=== PATIENT | male | born 1950 | race Caucasian/White ===

== ENCOUNTER → 2024-02-23 | Outpatient (CLI) | payer OTHER, MEDICARE | LOC: M PLARAD 12:17 | PROVIDERS: ATTEND Internal Medicine | DX: R91.1 Solitary pulmonary nodule (principal) | CPT/HCPCS: 78815; A9552 ==

== ENCOUNTER → 2024-05-13 | Outpatient (CLI) | payer OTHER, MEDICARE ==
[~2024-05-13] MED LIST: ATOR40TA75 PO; CHOL12508 PO; ECOT81TA5 PO; FLOM0.4C39 PO; FLON1SPR NARES; GABA-284 PO; METH-1165 PO; PULM0.25 NEB; SPIR1CAP INH; THEO400T4 PO; ZOLO100T PO
== END ==
LOC: M ONCR 10:02
PROVIDERS: ATTEND General Practice
DX: C32.8 Malignant neoplasm of overlapping sites of larynx (principal); F17.210 Nicotine dependence, cigarettes, uncomplicated; Z66 Do not resuscitate; Z85.118 Personal history of other malignant neoplasm of bronchus and lung; Z80.1 Family history of malignant neoplasm of trachea, bronchus and lung; Z88.1 Allergy status to other antibiotic agents; Z88.5 Allergy status to narcotic agent; Z88.8 Allergy status to other drugs, medicaments and biological substances; Z79.51 Long term (current) use of inhaled steroids; Z79.82 Long term (current) use of aspirin; Z79.899 Other long term (current) drug therapy; Z90.5 Acquired absence of kidney; Z99.81 Dependence on supplemental oxygen

== ENCOUNTER 2024-05-25 08:03 | Outpatient (RCR) | payer OTHER, MEDICARE | END 2024-06-12 | LOC: M ONCR 08:03 | PROVIDERS: ATTEND General Practice | DX: Z51.0 Encounter for antineoplastic radiation therapy (principal); C32.8 Malignant neoplasm of overlapping sites of larynx ==

== ENCOUNTER → 2024-05-26 | Outpatient (CLI) | payer OTHER, MEDICARE ==
[2024-05-26 16:25] LABS: BASO % 0.3 % (0.0-1.0); EOS # 0.1 10^3/uL (0.0-0.5); EOS % 0.8 % (0.0-3.0); HEMOGLOBIN 11.5 g/dl (13.5-17.5); LYMPH # 0.7 10^3/uL (1.5-5.0); LYMPH % 7.7 % (24.0-44.0); MEAN CORPUSCULAR HEMOGLOBIN 27.9 pg (27.0-33.0); MEAN CORPUSCULAR HGB CONC 31.1 g/dl (32.0-36.5); MEAN CORPUSCULAR VOLUME 89.8 fl (80.0-96.0); MONO # 0.7 10^3/uL (0.0-0.8); MONO % 7.6 % (2.0-8.0); NEUTROPHILS # 7.6 10^3/uL (1.5-8.5); NEUTROPHILS % 83.2 % (36.0-66.0); PLATELET COUNT, AUTOMATED 316 10^3/uL (150-450); RED BLOOD COUNT 4.12 10^6/uL (4.30-6.10); WHITE BLOOD COUNT 9.1 10^3/uL (4.0-10.0)
[2024-05-26 16:57] LABS: ALBUMIN 2.5 G/DL (3.2-5.2); ALKALINE PHOSPHATASE 82 U/L (46-116); ALT/SGPT 20 U/L (7.0-40); AST/SGOT 19 U/L (<34); BILIRUBIN,TOTAL 0.3 MG/DL (0.3-1.2); BLOOD UREA NITROGEN 19 MG/DL (9-23); CALCIUM LEVEL 9.2 MG/DL (8.3-10.6); CARBON DIOXIDE LEVEL 33 MMOL/L (20-31); CHLORIDE LEVEL 103 MMOL/L (98-107); CREATININE FOR GFR 0.48 MG/DL (0.70-1.30); GLOMERULAR FILTRATION RATE > 60.0 (>42); GLUCOSE, FASTING 144 MG/DL (74-106); MAGNESIUM LEVEL 1.9 MG/DL (1.8-2.4); POTASSIUM SERUM 4.2 MMOL/L (3.5-5.1); SODIUM LEVEL 137 MMOL/L (136-145); TOTAL PROTEIN 6.8 G/DL (5.7-8.2)
== END ==
LOC: M LAB 15:40
PROVIDERS: ATTEND Specialist
DX: C32.9 Malignant neoplasm of larynx, unspecified (principal)

== ENCOUNTER → 2024-05-31 | Outpatient (CLI) | payer OTHER, MEDICARE | LOC: M PLARAD 12:06 | PROVIDERS: ATTEND Student in an Organized Health Care Education/Training Program | DX: C32.8 Malignant neoplasm of overlapping sites of larynx (principal) | CPT/HCPCS: 78815; A9552 ==

== ENCOUNTER 2024-06-21 11:03 | Outpatient (RCR) | payer MEDICARE, OTHER | END 2024-07-12 | LOC: M ONCR 11:03 | PROVIDERS: ATTEND General Practice | DX: Z51.0 Encounter for antineoplastic radiation therapy (principal); C32.8 Malignant neoplasm of overlapping sites of larynx ==

== ENCOUNTER 2024-06-29 08:15 | Outpatient (RCR) | payer MEDICARE, OTHER | END 2024-07-12 | LOC: M ONCR 08:15 | PROVIDERS: ATTEND General Practice | DX: Z51.0 Encounter for antineoplastic radiation therapy (principal); C32.8 Malignant neoplasm of overlapping sites of larynx ==

== ENCOUNTER 2024-07-13 09:18 | Outpatient (RCR) | payer OTHER ==
[2024-07-20] MEDS ORDERED: OMEP40CA5 (13:18)
[2024-07-20] MEDS ORDERED: MIRT-10 (13:18)
== END 2024-08-12 ==
LOC: M ONCR 09:18
PROVIDERS: ATTEND General Practice
DX: Z51.0 Encounter for antineoplastic radiation therapy (principal); C32.8 Malignant neoplasm of overlapping sites of larynx

== ENCOUNTER 2024-08-03 08:00 | Outpatient (RCR) | payer MEDICARE, OTHER ==
[~2024-08-03 08:00] MED LIST changes: +MIRT-10; +OMEP40CA5
== END 2024-08-12 ==
LOC: M ONCR 08:00
PROVIDERS: ATTEND General Practice
DX: Z51.0 Encounter for antineoplastic radiation therapy (principal); C32.8 Malignant neoplasm of overlapping sites of larynx

== ENCOUNTER 2024-08-27 11:02 | Outpatient (RCR) | payer OTHER | END 2024-09-11 | LOC: M ONCR 11:02 | PROVIDERS: ATTEND General Practice | DX: Z51.0 Encounter for antineoplastic radiation therapy (principal); C32.8 Malignant neoplasm of overlapping sites of larynx ==

== ENCOUNTER 2024-09-03 07:54 | Outpatient (RCR) | payer MEDICARE, OTHER | END 2024-09-11 | LOC: M ONCR 07:54 | PROVIDERS: ATTEND General Practice | DX: Z51.0 Encounter for antineoplastic radiation therapy (principal); C32.8 Malignant neoplasm of overlapping sites of larynx ==

== ENCOUNTER → 2024-11-12 | Outpatient (CLI) | payer OTHER ==
[~2024-11-12] MED LIST changes: +MEGE400O12 PO; +MORP1SOL5 PO
[2024-11-12 12:45] LABS: BASO % 0.4 % (0.0-1.0); EOS # 0.1 10^3/uL (0.0-0.5); EOS % 1.9 % (0.0-3.0); HEMATOCRIT 41.2 % (42.0-52.0); HEMOGLOBIN 13.3 g/dl (13.5-17.5); LYMPH # 0.9 10^3/uL (1.5-5.0); LYMPH % 11.4 % (24.0-44.0); MEAN CORPUSCULAR HEMOGLOBIN 29.4 pg (27.0-33.0); MEAN CORPUSCULAR HGB CONC 32.3 g/dl (32.0-36.5); MEAN CORPUSCULAR VOLUME 90.9 fl (80.0-96.0); MONO # 0.6 10^3/uL (0.0-0.8); MONO % 7.4 % (2.0-8.0); NEUTROPHILS # 5.9 10^3/uL (1.5-8.5); NEUTROPHILS % 78.5 % (36.0-66.0); PLATELET COUNT, AUTOMATED 219 10^3/uL (150-450); RED BLOOD COUNT 4.53 10^6/uL (4.30-6.10); WHITE BLOOD COUNT 7.5 10^3/uL (4.0-10.0)
[2024-11-12 13:14] LABS: ALBUMIN 3.3 G/DL (3.2-5.2); ALKALINE PHOSPHATASE 68 U/L (40-129); ALT/SGPT 38 U/L (7.0-40); AST/SGOT 21 U/L (<34); BILIRUBIN,TOTAL 0.5 MG/DL (0.3-1.2); BLOOD UREA NITROGEN 23 MG/DL (9-23); CALCIUM LEVEL 9.5 MG/DL (8.3-10.6); CARBON DIOXIDE LEVEL 31 MMOL/L (20-31); CHLORIDE LEVEL 106 MMOL/L (98-107); CREATININE FOR GFR 0.68 MG/DL (0.70-1.30); GLOMERULAR FILTRATION RATE > 60.0 (>42); GLUCOSE, FASTING 139 MG/DL (74-106); POTASSIUM SERUM 4.1 MMOL/L (3.5-5.1); SODIUM LEVEL 141 MMOL/L (136-145); TOTAL PROTEIN 6.9 G/DL (5.7-8.2)
== END ==
LOC: M ONCR 11:52
PROVIDERS: ATTEND General Practice
DX: C32.8 Malignant neoplasm of overlapping sites of larynx (principal); F17.210 Nicotine dependence, cigarettes, uncomplicated; Z85.118 Personal history of other malignant neoplasm of bronchus and lung; Z90.2 Acquired absence of lung [part of]; Z48.813 Encounter for surgical aftercare following surgery on the respiratory system; Z85.21 Personal history of malignant neoplasm of larynx; Z79.82 Long term (current) use of aspirin; Z92.3 Personal history of irradiation; Z79.620 Long term (current) use of immunosuppressive biologic; R06.02 Shortness of breath; Z88.5 Allergy status to narcotic agent; Z88.8 Allergy status to other drugs, medicaments and biological substances; Z79.899 Other long term (current) drug therapy; Z79.891 Long term (current) use of opiate analgesic; Z79.51 Long term (current) use of inhaled steroids
CPT/HCPCS: 31575; 36415; 80053; 85025; G0463